=== PATIENT | female | born 1995 | race Caucasian/White ===

== ENCOUNTER → 2016-11-20 | Outpatient (CLI) | payer BC, OTHER ==
[~2016-11-20] MED LIST: AMPH20TA2 PO; FEXO1TAB49 PO; MEDR150I INJ; TRAM-10 PO
[2016-11-20 15:05] LABS: HEMATOCRIT 40.4 % (37-47)
== END | disposition home or self-care (01) ==
LOC: C.LAB1850 14:14
PROVIDERS: ATTEND Internal Medicine
DX: K92.1 Melena (principal)

== ENCOUNTER → 2016-11-21 | Outpatient (CLI) | payer BC, OTHER | END | disposition home or self-care (01) | LOC: C.LABSPEC 11:43 | PROVIDERS: ATTEND Internal Medicine | DX: Z00.00 Encounter for general adult medical examination without abnormal findings (principal); K92.1 Melena ==